=== PATIENT | female | born 1935 | race Caucasian/White ===

== ENCOUNTER 2016-08-23 19:37 | Emergency (ER) | payer MEDICARE ==
[~2016-08-23 19:37] MED LIST: ADULT ASPIRIN81 MG; AMOX TR-K CLV 81 TAB; ASPIR 8181 M1 PO; ASPIR 8181 MG; ASPIRIN EC81 MG PO; AUGMENTIN 875-11 TAB PO; BENAZEPRIL HCL10 M2 PO; BIOFLEX TABLET1 EAC1 PO; CALCIUM WITH V1 EAC2 PO; CALCIUM500 MG; CALCIUM600 M1 PO; CARVEDILOL3.125 MG PO; CELEBREX200 M1 PO; CELEBREX200 MG; CELEBREX200 MG PO; CELEXA20 M2 PO; CITALOPRAM HBR20 M1 PO; CITALOPRAM HBR20 MG PO; COMPAZINE10 M PO; COREG3.125 M1 PO; COREG3.125 MG; COREG6.25 M1 PO; COREG6.25 MG; COUMADIN1 MG PO; COUMADIN5 M1 PO; COUMADIN5 M2 PO; COUMADIN5 MG; DARVOCET-N 1001 TAB; DARVOCET-N 1001 TAB PO; FELDENE20 MG; FISH OIL 1,0001 EA10 PO; FISH OIL 11000 MG/CA PO; FLONASE16 GM; FUROSEMIDE PO; FUROSEMIDE20 M1 PO; GARLIC; GARLIC1 CAP; GEMFIBROZIL600 MG; GUAIFEN PO; HYDROCODONE/APA1 CAP; ISOSORBIDE DINI30 M1 PO; ISOSORBIDE MONO30 M4 PO; KEFLEX500 MG PO; LASIX20 M1 PO; LEVOTHROID137 MCG PO; LEVOTHYROXINE125 MCG; LEVOTHYROXINE125 MCG PO; LEVOTHYROXINE137 MC1 PO; LEVOXYL137 MC2 PO; LEXAPRO10 MG; LISINOPRIL2.5 MG PO; LOPID600 MG; LORTAB 5/500 TA1 TAB; LOTENSIN10 MG PO; LOVENOX100 MG/; LOVENOX100 MG/1 M SQ; MULTIVITAMIN1 TAB; MYSOLINE50 M3 PO; NIASPAN PO; NIASPAN500 M1 PO; NIASPAN500 MG; NIASPAN500 MG PO; NITROGLYCERIN0.4 M2 SL; NITROSTAT0.4 MG/TAB SL; NORCO 5-325 TA1 EACH PO; NORVASC5 MG; ODOR FREE GARL1 EAC1 PO; PANTOPRAZOLE SO40 MG PO; PAROXETINE HCL10 MG PO; PLAVIX75 M1 PO; PRIMIDONE50 M1 PO; PRIMIDONE50 MG PO; PROTONIX40 M2 PO; PROTONIX40 MG; SENOKOT-S TABLE1 TAB; SYNTHROID125 MCG; SYNTHROID137 MC1 PO; TRICOR145 MG; TYLENOL650 MG; VYTORIN 10/20 T1 TAB; WARFARIN SODIUM5 M2 PO; XOPENEX1.25 MG/3; ZESTRIL2.5 MG; ZETIA10 MG; ZETIA10 MG PO; ZOFRAN ODT4 MG PO; ZOFRAN4 MG PO; [UNRECOGNIZED DRUG - OTHER] PO
[2016-08-23 20:48] LABS: BASO % 0.2 % (0-2); EOS % 1.8 % (0-7); EOSINOPHIL ABSOLUTE COUNT 0.2 tho/cmm (0.0-0.7); HCT-HEMATOCRIT 41.7 % (34.0-49.0); HGB-HEMOGLOBIN 14.2 gm/dl (12.0-15.5); IMMATURE GRANULOCYTES ABSOLUTE 0.03 tho/cmm (0-0.03); IMMATURE GRANULOCYTES PERCENT 0.3 % (0-0.3); LYMPH % 16.1 % (20-45); LYMPH ABSOLUTE COUNT 1.4 tho/cmm (0.8-4.5); MCH (MEAN CORPUSCULAR HGB) 29.1 pg (28.0-32.0); MCHC MEAN CORPUSCULAR HGB CONC 34.1 % (32.0-36.0); MCV (MEAN CELL VOLUME) 85.5 fl (82.0-96.0); MEAN PLATELET VOLUME 10.5 cmc (9.4-12.4); MONO % 8.8 % (0-12); MONOCYTE ABSOLUTE COUNT 0.8 tho/cmm (0.0-1.2); NEUTROPHIL ABSOLUTE COUNT 6.4 tho/cmm (1.6-8.0); NEUTROPHIL-AUTOMATED 6.4 tho/cmm (1.6-8.0); NEUTROPHILS % 72.8 % (40-80); PLATELET COUNT 186 tho/cmm (150-450); RED BLOOD COUNT 4.88 mil/cmm (4.00-5.20); RED CELL DISTRIBUTION WIDTH 13.4 % (12.4-16.4); WHITE BLOOD COUNT 8.8 tho/cmm (4.0-10.0)
[2016-08-23 21:03] LABS: URINE APPEARANCE CLEAR; URINE BILIRUBIN NEGATIVE (NEG); URINE BLOOD MODERATE (NEG); URINE COLOR YELLOW; URINE GLUCOSE (UA) NEGATIVE (NEG); URINE KETONE MODERATE (NEG); URINE LEUKOCYTE ESTERASE NEGATIVE (NEG); URINE NITRITE NEGATIVE (NEG); URINE PROTEIN NEGATIVE (NEG)
[2016-08-23 21:06] LABS: ALB/GLOB RATIO 0.7 (0.8-2.0); ALBUMIN 3.2 g/dl (3.5-5.0); ALKALINE PHOSPHATASE 84 U/L (33-138); ALT/SGPT 20 U/L (12-78); ANION GAP 14 mmol/L (0-20); AST/SGOT 19 U/L (10-40); BILIRUBIN,TOTAL 0.5 mg/dl (0-1.5); BLOOD UREA NITROGEN 13 mg/dl (6-24); CARBON DIOXIDE-VENOUS 24 mmol/L (22-32); CHLORIDE 108 mmol/l (96-110); CREATININE 0.76 mg/dl (0.50-1.10); GLUCOSE 126 mg/dL (70-110); LIPASE 108 U/L (73-393); POTASSIUM 3.7 mmol/L (3.7-5.1); SODIUM 142 mmol/L (135-145); eGFR VALUE FOR BLACK 85 mL/Min
[2016-08-23 21:09] LABS: URINE BACTERIA 1+; URINE MUCUS 1+
[2016-08-24] MEDS ORDERED: COMPAZINE10 MG PO (00:31)
[2016-08-30] MEDS ORDERED: PROAIR HFA8.5 GM INH (16:48)
[2016-08-30] MEDS ORDERED: CYMBALTA30 M1 PO (16:48)
[2016-09-05] MEDS ORDERED: PLAVIX75 M1 PO (12:33)
[2016-09-05] MEDS ORDERED: COREG12.5 M1 PO (12:35)
[2016-09-05] MEDS ORDERED: FLOMAX0.4 M1 PO (12:43)
[2016-09-05] MEDS ORDERED: ZOFRAN4 M2 PO (12:47)
[2016-09-05] MEDS ORDERED: NORCO 5-325 TA1 EACH PO (12:49)
[2016-09-05] MEDS ORDERED: POTASSIUM CHLO10 ME3 PO (15:21)
[2016-09-05] MEDS ORDERED: LASIX20 M1 PO (16:01)
[2016-09-05] MEDS ORDERED: ZETIA10 M1 PO (16:05)
== END 2016-08-24 00:41 ==
LOC: EDMED 19:37
PROVIDERS: Emergency Medicine
DX: K21.9 Gastro-esophageal reflux disease without esophagitis (principal); R11.0 Nausea; I20.9 Angina pectoris, unspecified; I25.2 Old myocardial infarction; Z90.49 Acquired absence of other specified parts of digestive tract; Z95.5 Presence of coronary angioplasty implant and graft; Z95.1 Presence of aortocoronary bypass graft; Z79.01 Long term (current) use of anticoagulants; Z79.82 Long term (current) use of aspirin; Z79.899 Other long term (current) drug therapy
CPT/HCPCS: J0780